=== PATIENT | male | born 1940 | race Caucasian/White ===

== ENCOUNTER 2017-11-24 17:04 | Emergency (ER) | payer MEDICARE, OTHER ==
[2017-11-24 23:59] VITALS: BP 120/84
--- NOTE | 2017-11-25 10:34 | ER ---
DATE SEEN: 11/24/2017 TIME SEEN: The patient was seen at 1520 hours. HISTORY OF PRESENT ILLNESS: Ricardo is a 77-year-old man, who was started 9 days ago on doxycycline for tick bite in his right forearm. Since then, he has noted he has anorexia, orange urine, and orange stool. He said this looked like bright red blood stool for the last 3 to 4 days (however, did not have any today), probably the orange discoloration is related to the patient's hyperbilirubinemia, for which he was seen in the clinic today and had total bilirubin of 13 with direct bilirubin of 11.43, and he was sent to the hospital for further evaluation. He had a normal amylase. Also, he has had bilirubinemia, ketonuria, and low protein on the tests performed in the clinic today. He was sent to the ED for further evaluation of his elevated bilirubin. He has had decreased energy, and he notes, if he works in the garden, he has slight increased shortness of breath, has a 10-pound weight loss in the last 10 days, and he feels gassy, but does not have abdominal pain. He notes his waist band has decreased from 45 inches to 42 inches on his belt. OTHER MEDICAL HISTORY: No history of kidney disease or heart attacks or strokes. He denies diabetes. REVIEW OF SYSTEMS: CONSTITUTIONAL: Occasional dizziness. Denies headache. HEENT: He has decreased hearing and decreased vision. Wears glasses. Does not use hearing aids. Pharynx without difficulty. No difficulty swallowing. CARDIORESPIRATORY: Denies chest pain, irregular heartbeat, fast heart rate, tachycardia, bradycardia, near syncope, syncope, or palpitations. GI: As noted above. It turns out he does not have blood in the stool, but he thought he had blood in the stool but there has been orange stool for the last 4 days. He denies reflux. : Denies difficulty passing urine, frequency, urgency, dysuria, but he has orange urine. MUSCULOSKELETAL: Has mild arthritis in knees and legs. PREVIOUS SURGERIES: Bilateral cataract surgery. In 2002, he had prostate cancer surgery. MEDICATIONS: 1. Latanoprost 0.005% solution. 2. Simvastatin. 3. Zocor 10 mg at bedtime. 4. Metoprolol 50 mg at bedtime. 5. Lisinopril/hydrochlorothiazide 1 tablet daily. 6. Meloxicam. PHYSICAL EXAMINATION: VITAL SIGNS: Nurse has not entered in the chart, but I am looking nurse's notes. Pulse 103, systolic pressure 131, diastolic 71, mean arterial pressure 87, oxygen saturation 100%, temperature 97.7. GENERAL: Alert man has mild scleral icterus. EOMs normal appearance. Eyegrounds normal appearance. Pharynx without abnormality. Has slightly decreased dentition that is actually still good. NECK: No bruits. No thyromegaly. No masses. LUNGS: Clear without rales, rhonchi, or wheezes. HEART: S1, S2. No irregularity of rhythm. He describes his chest discomfort, he feels a fullness in his chest. ABDOMEN: Protruding, full, and pushes up on his lower chest. Abdomen is rounded, and I cannot palpate any masses. Bowel sounds increased. RECTAL: No evidence for blood in his stool or hemorrhoids. No masses. Prostate not enlarged. GENITALIA: Negative. EXTREMITIES: Lower extremities, trace pedal edema. No tenderness of vascular structures in the lower extremities. Deep tendon reflexes present, upper and lower extremities. Cranial nerves 2 through 12 intact. Oriented x3. Gait appropriate. Strength appropriate. LABORATORY FINDINGS: As noted above. The liver enzymes and automated chemistry were performed at the clinic. Urinalysis; 10-20 wbc's, bacteria many, 0-3 rbc's, 0-3 casts. Urine culture pending. (Specific gravity 1.025). Ketones 15. Protein is 30 on urinalysis. Later, after the patient left, stool guaic positive. The patient on CT scan has multiple liver lesions, right hepatic duct dilation, common duct dilation with suggestion of cancer of the gallbladder and/or liver, METS to the right adrenal, multiple enlarged lymph nodes in the abdomen, degenerative disk disease lumbar spine. PLAN: MRCP. The patient has decided would not like to go to [facility], but would go over to see his doctors tomorrow to have them make arrangements for further evaluation of MRCP. DIAGNOSES: 1. Probable liver cancer. 2. Common duct obstruction. 3. No evidence for pancreatitis on laboratory basis. 4. Chemical hepatitis with also elevated alkaline phosphatase and jaundice, elevated direct bilirubin 11.435. 5. Bowel motility abnormality secondary to metastatic liver cancer and possibly disruption of gut bacteria with recent start of doxycycline. 6. Mild abdominal pain, but most of his pain is from gas. 7. No clear evidence for rectal bleed. 8. Status post 2003 prostate cancer surgery and bilateral cataract surgeries. 9. Dyslipidemia. 10.Hypertension. 11.Glaucoma. 12.Bilateral lower extremity arthritis. The patient to see his primary care provider tomorrow morning to get MRCP scheduled. /[id number] HANSEL/NIELS
== END 2017-11-24 20:15 | disposition home or self-care (01) ==
LOC: FB.ED 17:04
DX: K83.1 Obstruction of bile duct (principal); R10.9 Unspecified abdominal pain; E78.5 Hyperlipidemia, unspecified; M17.0 Bilateral primary osteoarthritis of knee; I10 Essential (primary) hypertension; H40.9 Unspecified glaucoma; Z79.899 Other long term (current) drug therapy
CPT/HCPCS: 82272; 99283; 99284